=== PATIENT | male | born 1950 | race Native Hawaiian/Other Pacific Islander ===

== ENCOUNTER 2018-05-31 06:44 | Emergency (ER) | payer OTHER, MEDICARE ==
[2018-05-31 07:09] VITALS: TEMP 98.6
[2018-05-31] MEDS ORDERED: Tdap Vaccine 0.5 ml Vial (10-64 yrs) IM ONE ×2 (07:33→08:04)
[2018-05-31] MEDS ORDERED: Bacitracin 500 Units/gm Oint Foilpak UD TOP ONE (07:34)
--- NOTE | 2018-05-31 07:36 | C.PDOC ---
History Of Present Illness 68 y/o male presents with laceration to lower leg, got hit in left leg yesterday at 1:30 pm by metal sheets, denies any pain to tibia. last tdap unk. hx pre- diabetes. Time Seen by Provider: 05/31/18 07:22 Chief Complaint (Nursing): Lower Extremity Problem/Injury History Per: Patient History/Exam Limitations: no limitations Onset/Duration Of Symptoms: Days Current Symptoms Are (Timing): Still Present Severity: Moderate Past Medical History Reviewed: Historical Data, Nursing Documentation, Vital Signs Vital Signs: Last Vital Signs Temp 98.6 F 05/31/18 07:03 Pulse 73 05/31/18 07:03 Resp 20 05/31/18 07:03 BP 166/102 H 05/31/18 07:03 Pulse Ox 98 05/31/18 07:03 - Medical History PMH: Diabetes, Hypercholesterolemia Surgical History: No Surg Hx Family History: States: No Known Family Hx - Social History Hx Tobacco Use: Yes Hx Alcohol Use: No Hx Substance Use: No - Immunization History Hx Tetanus Toxoid Vaccination: Yes (more than 5 years) Hx Influenza Vaccination: Yes Hx Pneumococcal Vaccination: No Review Of Systems Constitutional: Negative for: Fever, Chills Skin: Positive for: Other (laceration to left leg) Physical Exam - Physical Exam Appears: Non-toxic, No Acute Distress Skin: Warm, Dry, Other (10 cm shallow laceration to left anterior boyle scabbed over with some surrounding abraded skin and 2 patches of abraded skin ) Head: Atraumatic, Normacephalic Eye(s): bilateral: Normal Inspection Extremity: Normal ROM, Tenderness (at site of abrasions and laceration), No Swelling Pulses: Left Dorsalis Pedis: Normal Neurological/Psych: Oriented x3, Normal Speech, Normal Cognition ED Course And Treatment O2 Sat by Pulse Oximetry: 98 (RA) Pulse Ox Interpretation: Normal Medical Decision Making Medical Decision Making: Plan: --Tentanus Vaccination --Tylenol PO --Keflex PO --Bacitracin EA Updates: The laceration is 18 hours old. Therefore, Bacitracin and dressing was applied to the leg.Patient has been discharged and instructed to return to the ER for worsening symptoms. Disposition Counseled Patient/Family Regarding: Diagnosis, Need For Followup, Rx Given - Disposition Referrals: Werner Abdi MD [Staff Provider] - Disposition: HOME/ ROUTINE Disposition Time: 08:31 Condition: GOOD Additional Instructions: Keep wound clean and dry. Change dressing daily. wash gently with doap and water and apply bacitracin. Take antobiotics until vompleted. Tylenol for pain if needed. Return to ER For nay signs of infection. such as redness, swelling. fever. pus. 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 - Scribe Statement The provider has reviewed the documentation as recorded by the Scribe Lizandro Sierra Provider Attestation All medical record entries made by the Scribe were at my direction and personally dictated by me. I have reviewed the chart and agree that the record accurately reflects my personal performance of the history, physical exam, medical decision making, and the department course for this patient. I have also personally directed, reviewed, and agree with the discharge instructions and disposition.
[2018-05-31] MEDS ORDERED: Bacitracin 500 Units/gm Oint Foilpak UD ONE (08:05)
[2018-05-31 08:33] VITALS: BP 171/99; PULSE 64; RESP 18
[2018-05-31 08:34] VITALS: O2SAT 98
== END 2018-05-31 09:00 | disposition home or self-care (01) ==
LOC: C.ER 06:44
DX: S81.812A Laceration without foreign body, left lower leg, initial encounter (principal); W22.8XXA Striking against or struck by other objects, initial encounter; Y92.89 Other specified places as the place of occurrence of the external cause; Y99.0 Civilian activity done for income or pay; Z23 Encounter for immunization